=== PATIENT | male | born 1990 | race Caucasian/White ===

== ENCOUNTER 2025-02-07 20:41 | Emergency (ER) | payer OTHER, SELFPAY ==
[2025-02-07 20:48] VITALS: BP 137/97
[2025-02-07 21:07] LABS: Hematocrit 46.7 % (39.0-52.0); Hemoglobin 15.9 g/dL (13.0-18.0); Mean Corp Hgb Conc. 34.0 g/dL (33.0-37.0); Mean Corpuscular Volume 94.2 fL (80.0-94.0); Nucleated Red Blood Cells % 0 % (-); Platelet Count 339 10^3/uL (130-400); Red Cell Dist. Width 13.0 % (11.5-14.5)
[2025-02-07 21:28] LABS: ALT (SGPT) 108 U/L (0-50); AST (SGOT) 69 U/L (17-59); Albumin 4.8 g/dl (3.5-5.0); Alkaline Phosphatase 50 U/L (38-126); Blood Urea Nitrogen 10 mg/dl (9-20); Calcium 9.9 mg/dl (8.4-10.2); Carbon Dioxide 25 mmol/L (22-30); Chloride 102 mmol/L (98-107); Glucose 88 mg/dl (70-99); Potassium 4.2 mmol/L (3.5-5.1); Sodium 138 mmol/L (135-145); Total Protein 7.9 g/dl (6.3-8.2); eGFR > 60.00
[2025-02-07 21:30] VITALS: BP 138/87
[2025-02-07 21:33] VITALS: BMI 26.5
[2025-02-07 21:41] LABS: Troponin I < 0.012 ng/ml
[2025-02-07 22:00] VITALS: BP 125/80
--- NOTE | 2025-02-07 22:52 | ED.GENMED ---
History of Present Illness
<Jeremias Castellanos MD, Resident - Last Filed: 02/07/25 23:29>
General
Chief Complaint: Chest Pain
Source: patient and family
Exam Limitations: none
Time Seen by Provider: 02/07/25 22:17
History of Present Illness
History of Present Illness:
Patient is a 34-year-old male with PMH of asthma, eczema, and lymphadenopathy who presents to the [place] ED with chest pain that started around 7:30 PM this evening. The chest pain was sudden onset, started when the patient was lifting a bag of
trash, localized to his left chest, 'sharp' in character, 6/10 intensity, nonradiating, and worse with movement and deep breathing. Associated with chills and mild cough over the past couple days. After onset, the pain was intermittent and
occurred with movement. Patient did not take any medications for the pain. At the bedside, he is no longer experiencing any pain. No associated shortness of breath, wheezing, N/V/D, abdominal pain, weakness, or numbness. Patient drank
approximately 6 beers today. Normally drinks about 24 beers per week. Smokes marijuana daily.
Past History
<Jeremias Castellanos MD, Resident - Last Filed: 02/07/25 23:29>
Past History
ED Past Medical History: Asthma, Other (Lymphadenopathy s/p biopsies (undetermined etiology)) and Other (Eczema)
ED Past Surgical History: Other (Lymph node biopsies)
Social History
Tobacco: Smoker (Marijuana)
Alcohol: Daily (24 beers per week)
Drug: Marijuana
<Stephany Miller MD - Last Filed: 02/07/25 23:56>
Social History
Personal: Single
Living: with family
Employment: Other
Family History
Family History: Other
Review of Systems
<Jeremias Castellanos MD, Resident - Last Filed: 02/07/25 23:29>
Review of Systems
Constitutional: Reports chills; Denies fever or fatigue
Respiratory: Reports cough; Denies trouble breathing
Cardiac: Reports chest pain
ABD/GI: Denies abdominal pain, nausea, vomiting or diarrhea
: Denies dysuria, frequency or urgency
Hematologic/Lymphatic: Reports swollen glands (Chronic)
<Stephany Miller MD - Last Filed: 02/07/25 23:56>
Review of Systems
Other source history: family
All Other Systems: ROS reviewed and negative except as documented in HPI and ROS
Musculoskeletal: Reports no symptoms
Skin: Reports no symptoms
Neurological: Reports no symptoms
Endocrine: Reports no symptoms
Psychiatric: Reports no symptoms
Phy Exam
<Jeremias Castellanos MD, Resident - Last Filed: 02/07/25 23:29>
Physical Exam
Physical Exam:
General: NAD. Conversant. Lying in bed comfortably.
CV: RRR. S1, S2 noted. No M/R/G. Pulses 2+ bilateral UEs.
Pulm: CTAB. No wheezes or crackles. No cyanosis.
MSK: Chest wall non-TTP. Left chest pain reproducible with neck and arm movement.
GI: Soft, nontender. Nondistended. Negative Sosa sign.
Integ: Eczematous patches on trunk and arms.
Neuro: A&O x 3. NFD. CN II through XII grossly intact.
Scores
<Jeremias Castellanos MD, Resident - Last Filed: 02/07/25 23:29>
Heart Score for Chest Pain Patients
STEMI patient?: No
History: Slightly or Non-Suspicious
ECG: Normal
Age: </= 45 years
Risk Factors: No Risk Factors
Troponin: </= Normal Limit
Heart Score for Chest Pain Patients: 0
Heart Score Risk: 2.5% MACE over next 6 weeks
<Stephany Miller MD - Last Filed: 02/07/25 23:56>
Heart Score for Chest Pain Patients
Heart Score for Chest Pain Patients: 0
Heart Score Risk: 2.5% MACE over next 6 weeks
Course
<Jeremias Castellanos MD, Resident - Last Filed: 02/07/25 23:29>
Orders/Labs/Results
Orders:
Orders
02/07/25 20:41
EKG [Electrocardiogram (*1)] Urgent
Reason for Study: Chest Pain
02/07/25 20:42
EKG- Treatment ONCE
02/07/25 20:58
Complete Blood Count/With Diff Urgent
Comprehensive Metabolic Panel Urgent
Troponin I Urgent
02/07/25 21:36
CR Chest - 2 Views Urgent
Comment:
Reason For Exam: chest pain
02/07/25 23:23
Ibuprofen [Motrin] 600 mg PO NOW STA
Abnormal Lab Results
02/07/25
20:58
MCV 94.2 H fL
(80.0-94.0)
MCH 32.1 H pg
(27.0-31.0)
Absolute Neuts (auto) 6.8 H 10^3/uL
(1.4-6.5)
Absolute Monos (auto) 1.1 H 10^3/uL
(0.1-0.6)
Lymphocytes % 18.4 L %
(20.5-51.1)
Monocytes % 11.1 H %
(1.7-9.3)
AST 69 H U/L
(17-59)
ALT 108 H U/L
(0-50)
02/07/25 20:58
02/07/25 20:58
Vital Signs
Initial and Last Documented VS:
Initial Vital Signs
Temp Pulse Resp BP Pulse Ox
98.3 F 81 18 137/97 100
02/07/25 20:48 02/07/25 20:48 02/07/25 20:48 02/07/25 20:48 02/07/25 20:48
Last Documented Vital Signs
Temp Pulse Resp BP Pulse Ox
98.3 F 87 13 125/80 98
02/07/25 20:48 02/07/25 22:30 02/07/25 22:30 02/07/25 22:00 02/07/25 23:05
<Stephany Miller MD - Last Filed: 02/07/25 23:56>
Orders/Labs/Results
Orders:
Orders
02/07/25 20:41
EKG [Electrocardiogram (*1)] Urgent
Reason for Study: Chest Pain
02/07/25 20:42
EKG- Treatment ONCE
02/07/25 20:58
Complete Blood Count/With Diff Urgent
Comprehensive Metabolic Panel Urgent
Troponin I Urgent
02/07/25 21:36
CR Chest - 2 Views Urgent
Comment:
Reason For Exam: chest pain
02/07/25 23:23
Ibuprofen [Motrin] 600 mg PO NOW STA
Abnormal Lab Results
02/07/25
20:58
MCV 94.2 H fL
(80.0-94.0)
MCH 32.1 H pg
(27.0-31.0)
Absolute Neuts (auto) 6.8 H 10^3/uL
(1.4-6.5)
Absolute Monos (auto) 1.1 H 10^3/uL
(0.1-0.6)
Lymphocytes % 18.4 L %
(20.5-51.1)
Monocytes % 11.1 H %
(1.7-9.3)
AST 69 H U/L
(17-59)
ALT 108 H U/L
(0-50)
02/07/25 20:58
02/07/25 20:58
Vital Signs
Initial and Last Documented VS:
Initial Vital Signs
Temp Pulse Resp BP Pulse Ox
98.3 F 81 18 137/97 100
02/07/25 20:48 02/07/25 20:48 02/07/25 20:48 02/07/25 20:48 02/07/25 20:48
Last Documented Vital Signs
Temp Pulse Resp BP Pulse Ox
98.3 F 87 13 125/80 98
02/07/25 20:48 02/07/25 22:30 02/07/25 22:30 02/07/25 22:00 02/07/25 23:05
<Jeremias Castellanos MD, Resident - Last Filed: 02/07/25 23:29>
MDM/Problems Addressed
Differential Diagnosis Includes:
Muscle strain
Costochondritis
Pulmonary embolism
Pneumothorax
Pneumonia
Myocardial infarction
MDM/Problems Addressed:
Assessment: Patient is a 34-year-old male with PMH of eczema, asthma, and lymphadenopathy presents to the [place] ED with sudden onset chest pain around 7:30 PM while lifting a bag of trash notice sharp, localized to the left chest, nonradiating,
pleuritic, and worse with movement. Chills, cough for last couple days. No associated shortness of breath. Physical exam remarkable only for reproducible left chest pain with neck and arm movement. AFVSS. Troponin <0.012. EKG, CXR
unremarkable. Mild transaminitis, labs otherwise unremarkable. Suspect chest pain is musculoskeletal in nature.
Plan:
#Chest pain
EKG
Labs: CBC, CMP, troponin
Imaging: CXR
<Jeremias Castellanos MD, Resident - Last Filed: 02/07/25 23:29>
*Pulse Oximetry
SaO2: 98
Oxygen Mode of Delivery: Room air
Patient hypoxic: no
*Critical Care Note
Total Time (30-74mins, 75-104mins- exclusive of procedures): Not Applicable
<Stephany Miller MD - Last Filed: 02/07/25 23:56>
*Radiology
Radiology exam reviewed: preliminary read by ED provider (Chest x-ray read by me. No acute disease) and radiology read reviewed
*EKG
Interpreted by ED Provider?: Yes
Interpretation: normal
Comparison EKG: no comparison EKG present
Rate: normal
Rhythm: sinus
[place]: normal axis
Interval: normal interval
QRS Pattern: normal QRS
Ischemia: no ischemia
*Data Warehouse Manager Interpretation
Rate: normal
Interpretation: normal
Rhythm: sinus
Data Reviewed
Source: patient and family
<Stephany Miller MD - Last Filed: 02/07/25 23:56>
Patient Management
Social determinants of health affecting care: Living situation and Strong social support
ED Attending Note
<Jeremias Castellanos MD, Resident - Last Filed: 02/07/25 23:29>
-
Portions of this chart may have been created with voice recognition software.� Occasional wrong word or��sound alike� substitutions may have occurred due to the inherent limitations of voice recognition software.
<Stephany Miller MD - Last Filed: 02/07/25 23:56>
ED Attending Note
Patient seen and examined by attending physician: Yes
I performed a history and physical exam of patient and discussed management with resident, I reviewed resident's note and agree with documented findings and plan of care.: Yes
ED Attending Note:
Patient appears well and comfortable. Lungs sound clear. Heart sounds regular. EKG is nonischemic. Troponin is negative. Patient has no high blood pressure, hyperlipidemia, or early family history to make him at risk for acute coronary
syndrome. It is doubtful he is acute coronary syndrome. Patient's pain is very reproducible with movement and he tells me that it is greatly improved and nearly gone. He reports it started when he picked up a 30 pound trash bag. Pain is likely
musculoskeletal
Discharge Plan
Departure
Patient Disposition: Home (Routine Discharge)
Date of Disposition: 02/07/25
Time of Disposition: 23:28
Patient with high blood pressure during this ER visit?: Yes
Condition: Good
Covid-19: Not Applicable
Discharge Problem:
Musculoskeletal chest pain
Instructions: Chest pain in adults - ED (DC), BLOOD PRESSURE
Referrals:
Rosalina Shore DO [Family Provider, Family Practice]
Activity Restrictions/Additional Instructions:
Take ibuprofen 600 mg by mouth every 6 hours for pain
Follow-up with your primary care physician in the outpatient setting
Return to the ED with shortness of breath, chest pain, or any other symptoms worrisome to you
Interventions
Interventions:
*Risk Screen - Suicide Last Done: 02/07/25 20:48
*General Assessment Last Done: 02/07/25 20:48
*Neglect/Abuse Screening Last Done: 02/07/25 20:48
*ED- Fall Risk Assessment Last Done: 02/07/25 21:33
*ED COVID-19 Vaccine History Last Done: 02/07/25 21:33
*ED Influenza Vaccine History Last Done: 02/07/25 21:33
*Nursing Disposition Last Done: 02/07/25 23:50
ED- Cardiac Assessment Last Done: 02/07/25 21:33
Discharge Date and Time
Discharge Date/Time: 02/07/25 23:50
Print Language: ROMANIAN
== END 2025-02-07 23:50 | disposition home or self-care (01) ==
LOC: EMR 20:41
PROVIDERS: EMERGENCY PHYSICIAN Emergency Medicine; FAMILY PHYSICIAN Family Medicine
DX: R07.89 Other chest pain (principal); J45.909 Unspecified asthma, uncomplicated; F12.90 Cannabis use, unspecified, uncomplicated; F17.200 Nicotine dependence, unspecified, uncomplicated
CPT/HCPCS: 99285; 71046; 80053; 84484; 85025; 93005